=== PATIENT | male | born 1955 | race Caucasian/White ===

== ENCOUNTER 2017-11-06 12:48 | Emergency (ER) | payer OTHER ==
[~2017-11-06] VITALS: Ht 172.7 cm; Wt 95.2 kg
[2017-11-06 12:51] VITALS: BP 134/97; Ht 172.7 cm; Wt 95.2 kg
== END 2017-11-06 15:04 | disposition home or self-care (01) ==
LOC: ED 12:48
DX: S93.601A Unspecified sprain of right foot, initial encounter (principal); I10 Essential (primary) hypertension; E11.9 Type 2 diabetes mellitus without complications; E78.00 Pure hypercholesterolemia, unspecified; X50.1XXA Overexertion from prolonged static or awkward postures, initial encounter; Y93.01 Activity, walking, marching and hiking; Y92.89 Other specified places as the place of occurrence of the external cause; Y99.8 Other external cause status

== ENCOUNTER 2017-11-11 12:06 | Inpatient (IN) | payer OTHER ==
[~2017-11-11] VITALS: Ht 172.7 cm; Wt 94.5 kg
[2017-11-11 12:09] VITALS: Ht 172.7 cm; Wt 94.5 kg
[2017-11-11 14:42] LABS: PLATELET COUNT 314 x10^3mcL (130-400); RED CELL DISTRIBUTION WIDTH 12.6 % (11.5-14.5)
[2017-11-11 14:54] LABS: microscopic required? YES; urine erythrocyte 3+ (NEGATIVE)
[2017-11-11 15:00] LABS: BILIRUBIN TOTAL 1.1 mg/dL (0.20-1.00); CALCIUM 9.2 mg/dL (8.5-10.1); CREATININE SERUM 1.4 mg/dL (0.7-1.3); POTASSIUM SERUM 4.6 mmol/L (3.5-5.1)
[2017-11-11 15:03] LABS: TOTAL PROTEIN, SERUM 8.7 g/dL (6.4-8.2)
[2017-11-11 15:04] LABS: ALBUMIN 2.4 g/dL (3.4-5.0)
[2017-11-11 15:21] LABS: BAND NEUTROPHIL 9 % (0-10); BASOPHIL 0 % (0-2); MONOCYTE 3 % (0-7); SEGMENTED NEUTROPHILS 81 % (37-75)
[2017-11-11 15:22] LABS: PLATELET MORPHOLOGY PLATELETS NORMAL; rbc morphology (normal/abnorm) NORMAL (NORMAL)
[2017-11-11] MEDS ORDERED: SIMVASTATIN10 M1 PO (16:26)
[2017-11-11] MEDS ORDERED: ZESTRIL5 MG PO (16:26)
[2017-11-11] MEDS ORDERED: GLUCOTROL10 MG PO (16:27)
[2017-11-11] MEDS ORDERED: METFORMIN HCL1000 MG PO (16:27)
[2017-11-11] MEDS ORDERED: JANUVIA100 M1 PO (16:27)
[2017-11-11] MEDS ORDERED: GABAPENTIN100 M2 PO (16:27)
[2017-11-11] MEDS ORDERED: INHALER (16:28)
[2017-11-11] MEDS ORDERED: GLIPIZIDE10 M2 PO (17:20)
[2017-11-11] MEDS ORDERED: QVAR0.08 MG/Ac IH (17:21)
[2017-11-11 17:32] LABS: AMPHETAMINE QUAL UR NONE DETECTED (NEG <=1000)
[2017-11-11 17:34] LABS: T3 TOTAL 0.66 ng/mL
[2017-11-11 17:40] LABS: FREE T4 1.49 ng/dL (0.76-1.46); FREE THYROXINE INDEX 3.4 ug/dL (1.4-4.5); T4(THYROXINE) 9.8 ug/dL (4.7-13.3)
[2017-11-11 18:08] VITALS: BP 149/95
[2017-11-11 19:31] VITALS: BP 171/67
[2017-11-11 19:49] LABS: CHOLESTEROL/HDL RATIO 6.9; MAGNESIUM 1.6 mg/dL (1.8-2.4); PHOSPHOROUS 3.8 mg/dL (2.5-4.9)
[2017-11-11 21:16] LABS: CALCIUM 8.8 mg/dL (8.5-10.1); CARBON DIOXIDE 21.8 mmol/L (21-32); CHLORIDE SERUM 96 mmol/L (98-107); CREATININE SERUM 1.2 mg/dL (0.7-1.3); GFR1 > 60 mL/min; GLUCOSE SERUM 266 mg/dL (74-106); MAGNESIUM 1.5 mg/dL (1.8-2.4); PHOSPHOROUS 2.5 mg/dL (2.5-4.9); POTASSIUM SERUM 4.1 mmol/L (3.5-5.1); SODIUM SERUM 132 mmol/L (136-145)
[2017-11-12] VITALS (7 sets, daily range): BP systolic 118–137; BP diastolic 73–85
[2017-11-12 00:59] LABS: CALCIUM 8.2 mg/dL (8.5-10.1); CARBON DIOXIDE 25.9 mmol/L (21-32); CHLORIDE SERUM 98 mmol/L (98-107); CREATININE SERUM 1.1 mg/dL (0.7-1.3); GFR1 > 60 mL/min; GLUCOSE SERUM 206 mg/dL (74-106); SODIUM SERUM 132 mmol/L (136-145)
[2017-11-12 04:59] LABS: PLATELET COUNT 290 x10^3mcL (130-400)
[2017-11-12 05:16] LABS: CALCIUM 8.3 mg/dL (8.5-10.1); CARBON DIOXIDE 24.7 mmol/L (21-32); CHLORIDE SERUM 99 mmol/L (98-107); CREATININE SERUM 1.2 mg/dL (0.7-1.3); GFR1 > 60 mL/min; GLUCOSE SERUM 183 mg/dL (74-106); POTASSIUM SERUM 3.7 mmol/L (3.5-5.1); SODIUM SERUM 133 mmol/L (136-145)
[2017-11-12 05:37] LABS: BAND NEUTROPHIL 5 % (0-10); METAMYELOCTE 4 % (0-2); MONOCYTE 6 % (0-7); PLATELET MORPHOLOGY PLATELETS NORMAL; SEGMENTED NEUTROPHILS 74 % (37-75); rbc morphology (normal/abnorm) NORMAL (NORMAL)
[2017-11-13 05:01] VITALS: BP 119/74
[2017-11-13 06:49] LABS: BASOPHIL % 0.2 % (0-2); PLATELET COUNT 273 x10^3mcL (130-400); RED CELL DISTRIBUTION WIDTH 13.1 % (11.5-14.5)
[2017-11-13 07:18] LABS: MAGNESIUM 1.9 mg/dL (1.8-2.4); PHOSPHOROUS 2.5 mg/dL (2.5-4.9)
[2017-11-13 08:27] VITALS: BP 154/76
[2017-11-13 13:33] VITALS: BP 146/9
[2017-11-13 16:20] VITALS: BP 121/69
[2017-11-13 21:22] VITALS: BP 140/78
[2017-11-14 05:35] VITALS: BP 121/79
[2017-11-14 07:10] LABS: CALCIUM 8.3 mg/dL (8.5-10.1); CARBON DIOXIDE 25.4 mmol/L (21-32); CHLORIDE SERUM 102 mmol/L (98-107); CREATININE SERUM 0.9 mg/dL (0.7-1.3); GFR1 > 60 mL/min; GLUCOSE SERUM 142 mg/dL (74-106); POTASSIUM SERUM 3.4 mmol/L (3.5-5.1); SODIUM SERUM 136 mmol/L (136-145)
[2017-11-14 07:13] LABS: BASOPHIL % 0.2 % (0-2); PLATELET COUNT 299 x10^3mcL (130-400); RED CELL DISTRIBUTION WIDTH 13.1 % (11.5-14.5)
[2017-11-14 09:11] VITALS: BP 132/80
[2017-11-14 14:11] VITALS: BP 140/87
[2017-11-14 18:42] VITALS: BP 132/76
[2017-11-14 21:48] VITALS: BP 160/94
[2017-11-15 06:11] VITALS: BP 136/88
[2017-11-15 06:11] LABS: BASOPHIL % 0.2 % (0-2); PLATELET COUNT 348 x10^3mcL (130-400); RED CELL DISTRIBUTION WIDTH 12.9 % (11.5-14.5)
[2017-11-15 06:25] LABS: CALCIUM 8.1 mg/dL (8.5-10.1); CARBON DIOXIDE 25.9 mmol/L (21-32); CHLORIDE SERUM 103 mmol/L (98-107); CREATININE SERUM 0.9 mg/dL (0.7-1.3); GFR1 > 60 mL/min; GLUCOSE SERUM 201 mg/dL (74-106); POTASSIUM SERUM 3.8 mmol/L (3.5-5.1); SODIUM SERUM 137 mmol/L (136-145)
[2017-11-15 09:15] VITALS: BP 145/87
[2017-11-15 09:18] VITALS: BP 145/87
[2017-11-15 16:33] VITALS: BP 147/90
[2017-11-15 22:03] VITALS: BP 151/88
[2017-11-16 05:29] VITALS: BP 156/92
[2017-11-16 06:33] LABS: BASOPHIL % 0.4 % (0-2); RED CELL DISTRIBUTION WIDTH 12.9 % (11.5-14.5)
[2017-11-16 06:58] LABS: CALCIUM 8.4 mg/dL (8.5-10.1); CARBON DIOXIDE 26.4 mmol/L (21-32); CHLORIDE SERUM 102 mmol/L (98-107); CREATININE SERUM 0.8 mg/dL (0.7-1.3); GFR1 > 60 mL/min; GLUCOSE SERUM 133 mg/dL (74-106); MAGNESIUM 1.4 mg/dL (1.8-2.4); PHOSPHOROUS 2.6 mg/dL (2.5-4.9); POTASSIUM SERUM 3.5 mmol/L (3.5-5.1); SODIUM SERUM 137 mmol/L (136-145)
[2017-11-16 07:05] LABS: PLATELET COUNT 412 x10^3mcL (130-400)
[2017-11-16] MEDS ORDERED: LEVEMIR100 U/M1 SC (08:18)
[2017-11-16] MEDS ORDERED: FLO4 PO (08:31)
[2017-11-16] MEDS ORDERED: APAP/HYDROCODON1 T13 PO (08:33)
[2017-11-16] MEDS ORDERED: HUMULIN R100 U/1 M1 SC (08:33)
[2017-11-16 09:16] VITALS: BP 169/101
[2017-11-16] MEDS ORDERED: CEPHALEXIN500 MG PO (09:22)
[2017-11-16] MEDS ORDERED: LAC PO (09:23)
[2017-11-16 11:18] VITALS: BP 142/95; BP 169/101
[2017-11-16 11:25] VITALS: BP 142/95
== END 2017-11-16 11:54 | disposition home or self-care (01) | DRG 871 ==
LOC: ED 12:06 → DU 15:50 → IC 15:50 → DU 11-12 12:37 → MU 11-15 08:45
PROVIDERS: Emergency Medicine; Family Medicine
DX: A41.9 Sepsis, unspecified organism (principal); E11.10 Type 2 diabetes mellitus with ketoacidosis without coma; N17.0 Acute kidney failure with tubular necrosis; E43 Unspecified severe protein-calorie malnutrition; E87.1 Hypo-osmolality and hyponatremia; E87.2 Acidosis; L03.115 Cellulitis of right lower limb; N12 Tubulo-interstitial nephritis, not specified as acute or chronic; S93.401A Sprain of unspecified ligament of right ankle, initial encounter; R80.9 Proteinuria, unspecified; R31.9 Hematuria, unspecified; N20.0 Calculus of kidney; J45.909 Unspecified asthma, uncomplicated; I10 Essential (primary) hypertension; W18.49XA Other slipping, tripping and stumbling without falling, initial encounter; E11.65 Type 2 diabetes mellitus with hyperglycemia; E78.5 Hyperlipidemia, unspecified; E78.00 Pure hypercholesterolemia, unspecified; E83.42 Hypomagnesemia; D64.9 Anemia, unspecified; Z68.31 Body mass index [BMI] 31.0-31.9, adult; Z85.51 Personal history of malignant neoplasm of bladder; Z79.84 Long term (current) use of oral hypoglycemic drugs; Y93.89 Activity, other specified; Y92.89 Other specified places as the place of occurrence of the external cause; Z80.52 Family history of malignant neoplasm of bladder; Z83.3 Family history of diabetes mellitus; Z92.21 Personal history of antineoplastic chemotherapy; Z79.899 Other long term (current) drug therapy
CPT/HCPCS: 36600; 82962; 83880; 84439; 97110-GP; 97116-GP; 97530-GP; A9577; J0295; J0692; J0696; J1644; J1815; J1885; J2543; J3370; J3475; J3480; J3490; J7030; Q0092; Q9967